=== PATIENT | female | born 1940 ===

== ENCOUNTER 2022-08-01 13:53 | Observation (INO) | payer MEDICARE, MEDICAID, SELFPAY ==
--- NOTE | ~2022-08-01 | XR_ITS ---
EXAMINATION: XR hip RT 2V w AP pelvis DATE: 08/01/2022 14:31 INDICATION: Right hip pain post fall TECHNIQUE: Anteroposterior view of the pelvis and anteroposterior and frog-leg lateral views of the r ight hip were obtained. COMPARISON: None. FINDINGS: Alignment is normal. Nondisplaced fracture at the right inferior pubic ramus. No other fractures iden tified. Bilateral hip joint spaces are normal. Mild osteoarthritis at the bilateral sacroiliac joints . Moderate lower lumbar spondylosis. Heterotopic ossification at the lateral aspect of the left and r ight iliac crest. IMPRESSION: 1. Nondisplaced fracture at the right inferior pubic ramus. Reviewed, dictated and finalized at location A.
--- NOTE | ~2022-08-01 | XR_ITS ---
EXAMINATION: XR shoulder RT min 2V DATE: 08/01/2022 14:31 INDICATION: Right shoulder pain post fall TECHNIQUE: AP internally and externally rotated, AP oblique externally rotated and transscapular Y vi ews of the right shoulder were obtained. COMPARISON: None FINDINGS: Diffuse osteopenia. Normal alignment. No fracture. Glenohumeral and acromioclavicular osteoarthritis . Soft tissues are unremarkable. Visualized portion of the right upper lung is clear. IMPRESSION: Mild right glenohumeral and acromioclavicular osteoarthritis. No acute osseous abnormality. Reviewed, dictated and finalized at location A.
--- NOTE | ~2022-08-01 | XR_ITS ---
EXAMINATION: XR elbow RT min 3V DATE: 08/01/2022 14:31 INDICATION: Right elbow pain post fall TECHNIQUE: Anteroposterior, two oblique and lateral views of the right elbow were obtained. COMPARISON: None. FINDINGS: Alignment is normal. No fracture or joint effusion. Mild osteoarthritis at the right elbow. Soft tiss ues are unremarkable. IMPRESSION: 1. Mild osteoarthritis at the right elbow. No joint effusion or acute osseous abnormality. Reviewed, dictated and finalized at location A. IMPRESSION: 1. Mild osteoarthritis at the right elbow. No joint effusion or acute osseous a bnormality.
[2022-08-01 14:00] VITALS: BP 148/73; PULSE 68; RESP 20; TEMP 36.6; O2SAT 99
--- NOTE | 2022-08-01 14:16 | ED.FALL ---
HPI - Fall General Chief Complaint: Fall Stated Complaint: fall Time Seen by Provider: 08/01/22 14:08 History of Present Illness HPI Narrative: Patient is an 82-year-old female here for evaluation after a fall today. Patient states that she was using her walker through the pumpkin patch when she rolls over a rock, sending the walker flying in front of her, landing on her right hip and elbow. She denies any head injury or loss of consciousness. Patient reports right hip and elbow pain since the accident. States that she was in her usual state of health prior to the fall, currently denies any chest pain, shortness of breath. Related Data Home Medications Medication Instructions Recorded Confirmed alprazolam 1 mg tablet (Xanax) 1 mg PO DAILY PRN 06/18/22 06/18/22 aspirin 81 mg tablet,delayed 81 mg PO DAILY 06/18/22 06/18/22 release (Adult Aspirin Regimen) metoprolol succinate 50 mg 50 mg PO DAILY 06/18/22 06/18/22 tablet,extended release 24 hr Allergies Allergy/AdvReac Type Severity Reaction Status Date / Time hydroxyprogesterone Allergy Unknown unknown Verified 06/18/22 09:11 meperidine Allergy Unknown Difficulty Verified 06/18/22 09:11 Breathing Penicillins Allergy Unknown Rash Verified 06/18/22 09:11 atorvastatin [From Lipitor] AdvReac Mild upset Verified 06/18/22 09:11 stomach codeine AdvReac Unknown upset Verified 08/01/22 14:59 stomach hydrocodone AdvReac Unknown upset Verified 08/01/22 14:59 stomach Review of Systems Review of Systems: Gen: Denies fevers or chills Eyes: Denies eye pain or visual change ENT: Denies congestion Respiratory: Denies shortness of breath or cough CV: Denies chest pain or palpitations GI: Denies abdominal pain nausea, emesis or diarrhea denies burning, urgency, frequency or hematuria Musculoskeletal: Reports right hip, shoulder and right elbow pain. Neuro: Denies numbness, tingling, weakness or focal weakness Skin: Denies rash Except as documented, all other systems reviewed and negative [facility] Past Medical History Medical History (Updated 08/01/22 @ 16:15 by Joy Lynn PA-C) Anxiety Chronic obstructive pulmonary disease Dyslipidemia Gastroesophageal reflux disease Hypertension Osteoarthritis Osteoporosis Type 2 diabetes mellitus Surgical History Surgical History (Updated 08/01/22 @ 16:15 by Joy Lynn PA-C) History of appendectomy (1949) History of hysterectomy (1973) Family History Family History Father Diabetes mellitus Family history of cardiovascular disease Mother Family history of cardiovascular disease Father Lung cancer Bone cancer Diabetes mellitus Grandparent Diabetes mellitus Grandparent Diabetes mellitus Son Carcinoma of colon Lung cancer Bone cancer Sibling Alcoholism Social History Social History (Updated 08/01/22 @ 16:12 by Joy Lynn PA-C) Social History: Surrogate medical decision maker: Code status: Full code. Smoking status: Former smoker Smoking end date: 10/10/95 Alcohol intake: never Substance use: never Exam Narrative: APPEARANCE: Well appearing, no pain in distress, well-nourished. Head: Normocephalic and atraumatic. EYES: PERRLA/EOMI, conjunctivae clear NOSE: No nasal drainage EARS: External ear normal in appearance THROAT: Oropharynx is clear. Mucous membranes are moist. NECK: Supple. No adenopathy, no masses. RESPIRATORY: Airway patent, respirations nonlabored. Clear to auscultation bilaterally, no rales, rhonchi, wheezing. CARDIOVASCULAR: Regular rate and rhythm without murmurs, rubs, or gallops. ABDOMINAL: Normoactive bowel sounds. Soft, nontender, nondistended. No rebound tenderness or guarding. MUSCULOSKELETAL: External and internal rotation provokes pain in right hip; no significant pain with flexion or extension of hip. Bony tenderness to right hip. Defer
[2022-08-01] MEDS: ACETAMINOPHEN 325 MG TABLET 650 MG PO (14:35)
[2022-08-01 15:34] LABS: Basophils Absolute Auto 0.1 K/mm3 (0.0-0.1); Basophils Percent Auto 0.8 % (0.2-1.2); Eosinophils Absolute Auto 0.2 K/mm3 (0-0.3); Eosinophils Percent Auto 2.5 % (0-4.4); Hematocrit 40.3 % (37.0-47.0); Hemoglobin 13.3 g/dL (12.0-15.0); Immature Granulocyte Absolute 0.02 K/mm3 (0.00-0.031); Immature Granulocyte Percent A 0.3 % (0-0.5); Lymphocytes Absolute Auto 1.64 K/mm3 (0.9-3.2); Lymphocytes Percent Auto 21.9 % (18.3-44.2); Mean Corpuscular Hemoglobin 30.2 pg (26-34); Mean Corpuscular Volume 91.6 fl (80-100); Mean Platelet Volume 10.5 fl (7.4-10.4); Monocytes Absolute Auto 0.8 K/mm3 (0.1-0.6); Monocytes Percent Auto 10.8 % (2.6-8.5); Neutrophils Absolute Auto 4.8 K/mm3 (1.3-6.7); Neutrophils Percent Auto 63.7 % (45.5-73.1); Platelet Count Result 230 k/mm3 (150-375); Red Cell Distribution Width 13.8 % (11.5-14.5); White Blood Count 7.5 K/mm3 (4.5-10.0)
[2022-08-01 15:45] LABS: Alanine Aminotransferase 32 U/L (6-35); Albumin Level 3.7 g/dL (3.5-5.1); Alkaline Phosphatase 50 U/L (38-126); Anion Gap 9 mmol/L (8-16); Aspartate Amino Transferase 32 U/L (14-36); Bilirubin,Total 0.4 mg/dL (0.2-1.3); Blood Urea Nitrogen 18 mg/dL (7-17); Calcium 8.8 mg/dL (8.4-10.2); Carbon Dioxide 24 mmol/L (22-30); Chloride 103 mmol/L (98-107); Estimated Glomerular Filt Rate > 60; Glucose 168 mg/dL (65-110); Sodium 136 mmol/L (137-145)
[2022-08-01] MEDS: MORPHINE SULFATE (*CRX) 4 MG/ML INJ IV PUSH (15:49)
--- NOTE | 2022-08-01 16:15 | PM.IMHP ---
H&P: HPI History of Present Illness Date/Time: 08/01/22 16:15 Chief Complaint: Right hip pain after fall. Narrative: This is an 82-year-old female with COPD, type 2 diabetes mellitus, and dyslipidemia who presented to the ED for evaluation of right hip pain after a ground level fall. The patient accompanied her daughter to a local pumpkin patch today and while attempting to go over some ros ground, the wheels in the walker got caught up and caused her to fall down onto her right side. She had immediate pain in her right hip but she was able to get up with the help of passersby. They helped her to a bench were she sat down for 20 or 30 minutes until her daughter was finished. She was unable to stand up but was unable to do so due to significant aching pain in the right groin and she was brought in for evaluation. On arrival she was also complaining of pain in her right shoulder and right elbow. She denied head trauma and loss of consciousness in the fall. Pelvic x-ray showed a nondisplaced fracture of the right inferior pubic ramus And due to inability to ambulate from the pain she is being admitted for pain control and PT/ OT evaluation. At the time my evaluation she is sitting in a wheelchair and is relatively comfortable as long as she does not attempt to set up. She is able to move the right leg at the hip and has only mild discomfort with that. Review of Systems Review of Systems: Twelve systems were reviewed. No fever, chills, or sweats. No recent cold or flu symptoms. She wears corrective lenses and is hard of hearing. No chest pain or shortness of breath. Except as documented, all other systems were reviewed and are negative. [facility] Past Medical History Medical History (Updated 08/01/22 @ 21:24 by Joy Lynn PA-C) Anxiety Chronic obstructive pulmonary disease Dyslipidemia Gastroesophageal reflux disease Hypertension Osteoarthritis Osteoporosis Type 2 diabetes mellitus Surgical History Surgical History (Updated 08/01/22 @ 16:15 by Joy Lynn PA-C) History of appendectomy (1949) History of hysterectomy (1973) Family History Family History Father Diabetes mellitus Family history of cardiovascular disease Mother Family history of cardiovascular disease Father Lung cancer Bone cancer Diabetes mellitus Grandparent Diabetes mellitus Grandparent Diabetes mellitus Son Carcinoma of colon Lung cancer Bone cancer Sibling Alcoholism Social History Social History (Updated 08/01/22 @ 21:21 by Joy Lynn PA-C) Social History: Surrogate medical decision maker: Karine Maher, daughter. Code status: Full code. Smoking packs per day: 0.2 Smoking cigarettes per day: 4.0 Years smoked: 44 Smoking pack-years: 8.80 Smoking status: Former smoker Tobacco type: cigarettes Smoking end date: 10/10/95 Alcohol intake: never Substance use: never Substance use type: does not use Living arrangements: alone Occupation/Education: retired Spiritual care concerns: No Has the Lack of Transportation Kept You From Medical Appointments or From Getting Medications?: No Within the Past 12 Months, Were You Worried Whether Your Food Would Run Out Before You Got Money to Buy More?: Never True What is Your Housing Situation Today?: I Have Housing Are You Worried That in the Next 2 Months, You May Not Have Your Own Housing to Live In?: No Do You Have Trouble Paying Your Heating Or Electricity Bill?: No Do You Have Trouble Paying For Medicines?: No Are You Currently Unemployed and Looking for Work?: No Highest Level of Education Completed: Grade School Do You Have Trouble With Childcare or the Care of a Family Member?: No Meds Home Medications and Allergies Home Medications Medication Instructions Recorded Confirmed Type albuterol sulfate 90 mcg/actuation 1 inh inhalat
[2022-08-01 18:25] VITALS: BMI 38.3
--- NOTE | 2022-08-01 18:30 | ADMGEN ---
This patient, Beckie Arce, was admitted to [facility] Room 313-01 at 1805. Patient/family oriented to hospital policies and general routines including ID bracelet, bed and alarms, visiting hours, pain management, procedures, bathroom and other care routines, personal items, smoking policy, room service/diet, and visiting hours. Information on how to activate the Rapid Response Team has been discussed. Patient/Family are encouraged to report perceived risks to care and to ask questions if they do not understand what they are told or what they should do.
[2022-08-01 21:53] VITALS: BP 150/84; PULSE 56; RESP 20; TEMP 36.3; O2SAT 98
[2022-08-02] MEDS: ACETAMINOPHEN 325 MG TABLET 650 MG PO (05:33)
[2022-08-02 06:00] VITALS: BP 123/58; PULSE 67; RESP 20; TEMP 36.6; O2SAT 98
[2022-08-02 07:34] LABS: Anion Gap 6 mmol/L (8-16); Blood Urea Nitrogen 14 mg/dL (7-17); Carbon Dioxide 26 mmol/L (22-30); Chloride 106 mmol/L (98-107); Estimated CRCL calculation 55 ml/min; Estimated Glomerular Filt Rate > 60; Glucose 160 mg/dL (65-110); Potassium 4.7 mmol/L (3.4-5.0); Sodium 138 mmol/L (137-145)
--- NOTE | 2022-08-02 08:28 | PM.CNOR ---
Assessment and Plan Assessment and plan (1) Closed fracture of right inferior pubic ramus: Qualifiers: Encounter type: initial encounter Qualified Code(s): S32.591A - Other specified fracture of right pubis, initial encounter for closed fracture <Brad Longo MD - Last Filed: 08/02/22 17:25> Code(s): S32.591A - Other specified fracture of right pubis, initial encounter for closed fracture <Brad Longo MD - Last Filed: 08/02/22 17:25> Status: Acute <Brad Longo MD - Last Filed: 08/02/22 17:25> Assessment and Plan: New patient evaluation status post injury right hip and pelvis. The history, physical exam and radiographs reviewed with the patient. Type of fracture discussed in detail. Inferior pubic ramus fracture. Treatment options including operative and non operative treatment reviewed. Risks, benefits and alternatives of each treatment discussed in detail. The patient has declined surgical treatment. Risks of treatment decision discussed in detail. Potential problems with displacement of the fracture, loss of alignment, nonunion, malunion and dysfunction discussed in detail. The patient's questions were answered. They verbalized understanding and agreement. Conservative treatment with immobilization, ice, compression and elevation. Plan evaluation by PT/OT with weight-bearing as tolerated. Pain control. Disposition when stable. <Brad Longo MD - Last Filed: 08/02/22 17:25> Assessment and Plan: Patient prefers home with home health. <ZACH Anderson - Last Filed: 08/02/22 13:13> History of Present Illness HPI Consult date: 08/02/22 <Brad Longo MD - Last Filed: 08/02/22 17:25> 08/02/22 <ZACH Anderson - Last Filed: 08/02/22 13:13> Requesting physician: Aylin Treadwell PA-C <Brad Longo MD - Last Filed: 08/02/22 17:25> Chief complaint: inferior public rami fracture <Brad Longo MD - Last Filed: 08/02/22 17:25> Narrative: 82-year-old outside yesterday with her walker on uneven ground. By report, the walker got away from lost her balance right side. Unable to bear weight. Was brought emergency room found pelvis fracture and admitted for care. <Brad Longo MD - Last Filed: 08/02/22 17:25> Review of Systems Constitutional: Constitutional: Denies fever(s) <Brad Longo MD - Last Filed: 08/02/22 17:25> Eyes: Eyes: Denies blurry vision <Brad Longo MD - Last Filed: 08/02/22 17:25> ENT: Reports Normal hearing present <Brad Longo MD - Last Filed: 08/02/22 17:25> Cardiovascular: Cardiovascular: Denies chest pain and Denies dyspnea <Brad Longo MD - Last Filed: 08/02/22 17:25> Respiratory: Respiratory: Denies dyspnea and Denies wheezing <Brad Longo MD - Last Filed: 08/02/22 17:25> Gastrointestinal: Gastrointestinal: Denies abdominal pain <Brad Longo MD - Last Filed: 08/02/22 17:25> Genitourinary: Genitourinary: Denies urinary urgency <Brad Longo MD - Last Filed: 08/02/22 17:25> Musculoskeletal: Musculoskeletal: Reports as per HPI and Denies numbness <Brad Longo MD - Last Filed: 08/02/22 17:25> Integumentary/Breasts: Skin/Breast: Denies changing lesions and Denies sores <Brad Longo MD - Last Filed: 08/02/22 17:25> Neurologic: Reports Normal hearing present, Denies behavioral changes, Denies confusion, Denies numbness and Denies convulsions <Brad Longo MD - Last Filed: 08/02/22 17:25> Psychiatric: Psychiatric: Denies behavioral changes, Denies confusion and Denies hallucinations <Brad Longo MD - Last Filed: 08/02/22 17:25> Endocrine: Endocrine: Denies heat intolerance <Brad Longo MD - Last Filed: 08/02/22 17:25> Hematologic/Lymphatic: Hematologic/Lymphatic: Denies easy bleeding <Brad Longo MD - Last Filed: 08/02/22 17:25> Allergic/Immunologic: Allergic/Immunologic: Denies wheez
[2022-08-02 09:18] LABS: Glucose Point of Care 153 mg/dl (65-105)
[2022-08-02] MEDS: METOPROLOL SUCCINATE EXT REL 50 MG TABCR PO (09:35)
[2022-08-02] MEDS: ASPIRIN 81 MG ENTERIC TABLET PO (09:35)
[2022-08-02 12:16] LABS: Glucose Point of Care 145 mg/dl (65-105)
[2022-08-02] MEDS: oxyCODONE/ACETAMINOPHEN (*CRX) 5-325 MG TABLET 1 TABLET PO (12:55)
[2022-08-02 14:00] VITALS: BP 122/59; PULSE 71; RESP 16; TEMP 35.8; O2SAT 100
[2022-08-02 16:30] LABS: Glucose Point of Care 194 mg/dl (65-105)
--- NOTE | 2022-08-02 16:59 | PM.IMPN ---
Progress Note: A&P Assessment and Plan (1) Fall from ground level: Code(s): W18.30XA - Fall on same level, unspecified, initial encounter Status: Acute Assessment and Plan: no surgical plan per ortho will need placement (2) Closed fracture of right inferior pubic ramus: Qualifiers: Encounter type: initial encounter Qualified Code(s): S32.591A - Other specified fracture of right pubis, initial encounter for closed fracture Code(s): S32.591A - Other specified fracture of right pubis, initial encounter for closed fracture Status: Acute (3) Type 2 diabetes mellitus: Code(s): E11.9 - Type 2 diabetes mellitus without complications Status: Acute (4) Hypertension: Code(s): I10 - Essential (primary) hypertension Status: Acute (5) Dyslipidemia: Code(s): E78.5 - Hyperlipidemia, unspecified Status: Acute (6) Chronic obstructive pulmonary disease: Code(s): J44.9 - Chronic obstructive pulmonary disease, unspecified Status: Acute Subjective Date/time seen: 08/02/22 16:59 no new complaints pain under decent control Exam Narrative: General: Well-developed female sitting in a wheelchair in no acute distress. Weight: 92 kilograms. BMI: 38.3. HEENT: PERRL, EOMI. Sclera anicteric. Oral mucosa moist. Neck: Supple. Respiratory: Lungs are clear to auscultation bilaterally. Cardiovascular: Regular rate and rhythm with S1-S2. Gastrointestinal: Abdomen is soft, nontender, and nondistended with positive bowel sounds. Skin: Warm and dry. Small abrasion on the right elbow. Extremities: No cyanosis Or clubbing. Trace lower extremity edema bilaterally, chronic per patient. Radial and pedal pulses intact. Musculoskeletal: She has tenderness to palpation over the right anterior shoulder with mild discomfort with active and passive range of motion. Right elbow has good range of motion without pain. She is tender to palpation in the right inguinal region. Neurological: Alert. Cranial nerves 2-12 are grossly intact. Hard of hearing. No gross focal deficits to casual conversation. Psychiatric: Pleasant and cooperative with normal mood and affect. Judgment and insight intact. Objective Data Vital Signs Vital Signs: Vital Signs - 24 hr 08/01/22 21:53 08/02/22 06:00 08/02/22 09:54 Temperature 97.3 F L 97.9 F Pulse Rate 56 L 67 Respiratory Rate 20 20 Blood Pressure 150/84 H 123/58 L Pulse Oximetry 98 98 Oxygen Delivery Room Air 08/02/22 10:20 08/02/22 14:00 Temperature 96.4 F L Pulse Rate 71 Respiratory Rate 16 Blood Pressure 122/59 L Pulse Oximetry 100 Oxygen Delivery Room Air Intake/Output Intake/Output: Intake & Output 07/30/22 07/31/22 08/01/22 08/02/22 23:59 23:59 23:59 23:59 Intake Total 525 Output Total 1000 Balance -475 Meds/Results Medications: Active Medications Generic Name Dose Route Start Last Admin Trade Name Freq PRN Reason Stop Dose Admin Acetaminophen 650 mg 08/01/22 21:28 08/02/22 05:33 Acetaminophen 325 Mg Tablet PO 650 mg Q6H PRN Administration Mild Pain (1-3) or Fever Albuterol 1 puff 08/01/22 21:28 Albuterol Sulfate (*Sp) Aerosol 1 Puff INHALATION Q4H PRN shortness of breath or wheezing Alprazolam 1 mg 08/01/22 21:28 Alprazolam (*Crx) 0.5 Mg Tablet PO DAILY PRN Anxiety Aspirin 81 mg 08/02/22 09:00 08/02/22 09:35 Aspirin 81 Mg Enteric Tablet PO 81 mg DAILY ALEXANDREA Administration Dextrose 12.5 gm 08/01/22 21:26 Dextrose 50% 25 Gm/50 Ml Syringe IV PUSH PRN PRN Hypoglycemia Protocol Ezetimibe 10 mg 08/01/22 21:35 08/01/22 23:31 Ezetimibe 10 Mg Tablet PO Not Given HS ALEXANDREA Glucagon 1 mg 08/01/22 21:26 Glucagon For Inj 1 Mg Vial IM PRN PRN Hypoglycemia Protocol Glucose 15 gm 08/01/22 21:26 Glucose Oral Gel 15 Gm Of Glucse In 37.5 Gm Tube PO PRN P
[2022-08-02] MEDS: EZETIMIBE 10 MG TABLET PO (20:30)
[2022-08-02 22:00] VITALS: BP 118/69; PULSE 73; RESP 17; TEMP 36.3; O2SAT 95
[2022-08-02] MEDS: traMADol HCL (*CRX) 50 MG TABLET PO (22:46)
[2022-08-03 06:00] VITALS: BP 115/66; PULSE 74; RESP 16; TEMP 36.6; O2SAT 96
--- NOTE | 2022-08-03 07:57 | PM.PNORT ---
Progress Note: A&P Assessment and Plan (1) Closed fracture of right inferior pubic ramus: Qualifiers: Encounter type: subsequent encounter Fracture healing: with routine healing Qualified Code(s): S32.591D - Other specified fracture of right pubis, subsequent encounter for fracture with routine healing Code(s): S32.591A - Other specified fracture of right pubis, initial encounter for closed fracture Status: Acute Assessment and Plan: Right pelvis fracture. Pain controlled. Home with home health when stable. Plan Patient prefers home with home health. Subjective Subjective Date/Time Seen: 08/03/22 07:57 Principal diagnosis: Right inferior pubic ramus fracture Interval history: no changes or new complaints. Patient alert and oriented. Exam Const: General: No confusion Orientation/consciousness: patient oriented x3 and No confusion HENMT: Head: normal to inspection, normocephalic and atraumatic Eyes: Conjunctivae: conjunctivae normal Sclera: sclerae normal Neck: Neck: supple and nontender Chest: Chest palpation & inspection: normal inspection of the chest Resp: Effort & Inspection: normal respiratory effort and no audible wheezes Neuro: General: patient oriented x3 and No confusion Cranial nerves: Yes Normal hearing present Extrem: General: capillary refill normal Right upper extremity: normal to inspection Left upper extremity: normal to inspection Right lower extremity: hip/thigh Details: tenderness Location: of the hip (groin ) Location: laterally and anteriorly and swelling Location: at the hip ( mild), ankle ( able to actively flex and extend ankle) Details: no tenderness and foot Details: normal capillary refill, toes with normal ROM, vascular exam Details: dorsalis pedis pulse present and normal capillary refill and motor-sensory exam Details: light-touch normal Location: in all toes; no tenderness Left lower extremity: normal to inspection, hip/thigh Details: no tenderness and no swelling, lower leg, ankle (no calf tenderness) Details: normal ROM; no tenderness and foot Details: normal capillary refill, vascular exam Details: dorsalis pedis pulse present and normal capillary refill and motor-sensory exam light-touch normal in all toes Psych: Affect: normal affect Objective Data Vital Signs Vital Signs: Vital Signs - 24 hr 08/02/22 09:54 08/02/22 10:20 08/02/22 14:00 Temperature 96.4 F L Pulse Rate 71 Respiratory Rate 16 Blood Pressure 122/59 L Pulse Oximetry 100 Oxygen Delivery Room Air Room Air 08/02/22 22:00 08/03/22 06:00 Temperature 97.3 F L 97.8 F Pulse Rate 73 74 Respiratory Rate 17 16 Blood Pressure 118/69 115/66 Pulse Oximetry 95 96 Oxygen Delivery Intake/Output Intake/Output: Intake & Output 07/31/22 08/01/22 08/02/22 08/03/22 23:59 23:59 23:59 23:59 Intake Total 885 1100 Output Total 1600 550 Balance -715 550 Meds/Results Medications: Active Medications Generic Name Dose Route Start Last Admin Trade Name Freq PRN Reason Stop Dose Admin Acetaminophen 650 mg 08/01/22 21:28 08/02/22 05:33 Acetaminophen 325 Mg Tablet PO 650 mg Q6H PRN Administration Mild Pain (1-3) or Fever Albuterol 1 puff 08/01/22 21:28 Albuterol Sulfate (*Sp) Aerosol 1 Puff INHALATION Q4H PRN shortness of breath or wheezing Alprazolam 1 mg 08/01/22 21:28 Alprazolam (*Crx) 0.5 Mg Tablet PO DAILY PRN Anxiety Aspirin 81 mg 08/02/22 09:00 08/02/22 09:35 Aspirin 81 Mg Enteric Tablet PO 81 mg DAILY ALEXANDREA Administration Dextrose 12.5 gm 08/01/22 21:26 Dextrose 50% 25 Gm/50 Ml Syringe IV PUSH PRN PRN Hypoglycemia Protocol Ezetimibe 10 mg 08/01/22 21:35 08/02/22 20:30 Ezetimibe 10 Mg Tablet PO 10 mg HS ALEXANDREA Administration Glucagon 1 mg 08/01/22 21:26 Glucagon For Inj 1 Mg Vial IM PRN PRN Hypoglycemia Protocol Glucose 15 gm
[2022-08-03 08:08] LABS: Glucose Point of Care 149 mg/dl (65-105)
[2022-08-03 08:32] VITALS: PULSE 74
[2022-08-03] MEDS: ASPIRIN 81 MG ENTERIC TABLET PO (08:32)
[2022-08-03] MEDS: METOPROLOL SUCCINATE EXT REL 50 MG TABCR PO (08:32)
[2022-08-03] MEDS: traMADol HCL (*CRX) 50 MG TABLET PO (08:36)
--- NOTE | 2022-08-03 11:00 | PM.DS ---
DS: Admitting Diagnosis Discharge Date August 03, 2022 Admitting Diagnosis fall DS: Discharge Diagnosis Discharge Diagnosis (1) Fall from ground level: Code(s): W18.30XA - Fall on same level, unspecified, initial encounter Status: Acute Assessment and Plan: no surgical plan per ortho will need placement (2) Closed fracture of right inferior pubic ramus: Qualifiers: Encounter type: subsequent encounter Fracture healing: with routine healing Qualified Code(s): S32.591D - Other specified fracture of right pubis, subsequent encounter for fracture with routine healing Code(s): S32.591A - Other specified fracture of right pubis, initial encounter for closed fracture Status: Acute (3) Type 2 diabetes mellitus: Code(s): E11.9 - Type 2 diabetes mellitus without complications Status: Acute (4) Hypertension: Code(s): I10 - Essential (primary) hypertension Status: Acute (5) Dyslipidemia: Code(s): E78.5 - Hyperlipidemia, unspecified Status: Acute (6) Chronic obstructive pulmonary disease: Code(s): J44.9 - Chronic obstructive pulmonary disease, unspecified Status: Acute DS: Summary Hospital Course Hospital Course: patient is an 82-year-old female who had a fall and had a pelvic fracture. Orthopedics was consulted and recommended no surgery after discussion with patient. She will be sent home with home health and pain control. Otherwise she is stable Time Spent with Patient Time attestation: Total time spent providing and/or coordinating discharge services: Exam Narrative: General: Well-developed female sitting in a wheelchair in no acute distress. Weight: 92 kilograms. BMI: 38.3. HEENT: PERRL, EOMI. Sclera anicteric. Oral mucosa moist. Neck: Supple. Respiratory: Lungs are clear to auscultation bilaterally. Cardiovascular: Regular rate and rhythm with S1-S2. Gastrointestinal: Abdomen is soft, nontender, and nondistended with positive bowel sounds. Skin: Warm and dry. Small abrasion on the right elbow. Extremities: No cyanosis Or clubbing. Trace lower extremity edema bilaterally, chronic per patient. Radial and pedal pulses intact. Musculoskeletal: She has tenderness to palpation over the right anterior shoulder with mild discomfort with active and passive range of motion. Right elbow has good range of motion without pain. She is tender to palpation in the right inguinal region. Neurological: Alert. Cranial nerves 2-12 are grossly intact. Hard of hearing. No gross focal deficits to casual conversation. Psychiatric: Pleasant and cooperative with normal mood and affect. Judgment and insight intact. DS: Data Data Completed and Pending Labs on day of discharge: Labs from last 24 hours 08/03/22 08/02/22 08/02/22 07:58 16:23 12:00 POC Capillary Glucose 149 H 194 H 145 H Discharge Plan Discharge Attending physician on discharge: Mendoza Davis Consulting providers: Brad Longo ; Aylin Treadwell Discharging Clinician: Mendoza Davis Patient Disposition: Home Health Service Activity: may shower, no driving and follow weight bearing status Diet: as tolerated Wound Care Instructions: follow printed instructions Discharge Instructions: Per Care Coordination, patient to discharge home with [facility] ([phone]) for PT/OT and fci service. They will contact you after discharge to arrange admission visit. Patient Instructions: Antibiotic Form, Aspirin (By mouth), Pelvic Fracture (DC) Stand Alone Forms: General Discharge Information Follow-up/Referrals: Brad Longo MD [Physician] - 09/15/22 9:00 am Discharge Medications: New tramadol 50 mg tablet 50 mg PO Q6H PRN (Reason: pain) 5 Days Qty: 20 0RF Continued aspirin [Adult Aspirin Regimen] 81 mg tablet,delayed release (DR/EC) 81 mg PO DAILY metoprolol succinate 50 mg t
[2022-08-03 11:45] LABS: Glucose Point of Care 164 mg/dl (65-105)
[2022-08-03 11:47] VITALS: O2SAT 94
== END 2022-08-03 14:31 | disposition home health service (06) ==
LOC: ANHED 16:08 → ANH3MEDSUR 18:10
PROVIDERS: Internal Medicine; Physician Assistant; Admitting Provider Chiropractor; Emergency Provider Emergency Medicine; PCP Family Medicine; Visit Provider Chiropractor
DX: S32.591A Other specified fracture of right pubis, initial encounter for closed fracture (principal); W18.30XA Fall on same level, unspecified, initial encounter; M19.021 Primary osteoarthritis, right elbow; M19.011 Primary osteoarthritis, right shoulder; Y92.89 Other specified places as the place of occurrence of the external cause; F41.9 Anxiety disorder, unspecified; J44.9 Chronic obstructive pulmonary disease, unspecified; E78.5 Hyperlipidemia, unspecified; K21.9 Gastro-esophageal reflux disease without esophagitis; I10 Essential (primary) hypertension; M19.90 Unspecified osteoarthritis, unspecified site; M81.0 Age-related osteoporosis without current pathological fracture; E11.9 Type 2 diabetes mellitus without complications; Z23 Encounter for immunization; Z83.3 Family history of diabetes mellitus; Z87.891 Personal history of nicotine dependence; Z79.51 Long term (current) use of inhaled steroids; Z79.82 Long term (current) use of aspirin; Z79.899 Other long term (current) drug therapy; Z82.49 Family history of ischemic heart disease and other diseases of the circulatory system
CPT/HCPCS: 36415; 73030; 73080; 73502; 80048; 80053; 82948; 83735; 85025; 90471; 90694; 96374; 97110; 97161; 97165; 97530; 97535; 99285; A9270; G0008; G0378; J2270

== ENCOUNTER 2022-08-04 12:41 | Outpatient (NON) | payer MEDICARE, MEDICAID, SELFPAY ==
[2022-08-04 13:20] LABS: Add Urine Microscopic? YES; Appearance Urine Clear (Clear); Bacteria Urine Trace /hpf; Bilirubin Urine Negative (Negative); Blood Urine Negative (Negative); Color Urine Straw (Yellow); Glucose Urine UA 3+ mg/dL (Negative); Ketones Urine Negative (Negative); Leukocyte Esterase Ur 2+ LEU/UL (Negative); Nitrate Urine Negative (Negative); Protein Urine Negative (Negative); Specific Grav Ur 1.007 (1.001-1.035); Squamous Epithelial Cell Urine Rare /hpf (Few); Urobilinogen Urine Negative mg/dL (<2.0); WBC Urine 51-75 /hpf
== END 2022-08-04 12:42 | disposition home or self-care (01) ==
LOC: ANHLAB 12:45 → HOME HLTH 12:46
PROVIDERS: PCP Family Medicine; Referring Provider Family Medicine; Visit Provider Physician Assistant
DX: R30.0 Dysuria (principal); S32.591D Other specified fracture of right pubis, subsequent encounter for fracture with routine healing; I30.0 Acute nonspecific idiopathic pericarditis; E11.9 Type 2 diabetes mellitus without complications; I10 Essential (primary) hypertension; J44.9 Chronic obstructive pulmonary disease, unspecified
CPT/HCPCS: 81001; 87086; 87088

== ENCOUNTER 2023-02-24 10:07 | Outpatient (CLI) | payer MEDICARE, MEDICAID, SELFPAY ==
--- NOTE | ~2023-02-24 | MM_ITS ---
EXAMINATION: MM screening katja BI w melany HISTORY: Screening mammogram TECHNIQUE: Craniocaudal and mediolateral oblique 3-D tomosynthesis images were obtained and synthetic 2-D images were generated. CAD analysis was submitted and interpreted. COMPARISON: No prior mammogram is available for comparison at this institution. BREAST PARENCHYMAL COMPOSITION: There are scattered areas of fibroglandular density. FINDINGS: RIGHT BREAST: No suspicious mass, calcification, or architectural distortion are identified to sugges t malignancy. LEFT BREAST: There are small masses in the middle and posterior thirds of the outer breast. IMPRESSION: 1. Small left breast masses which may represent the patient's baseline however no comparison is curre ntly available. 2. Comparison with prior mammograms is necessary. BI-RADS Category 0: Incomplete: Needs comparison with prior mammograms. Reviewed, dictated and finalized at location A. IMPRESSION: 1. Small left breast masses which may represent the patient's baseline however no comparison is currently available. 2. Comparison with prior mammograms is necessary. BI-RADS Category 0: Incomplete: Needs comparison with prior mammograms.
== END 2023-02-24 10:08 | disposition home or self-care (01) ==
PROVIDERS: PCP Family Medicine; Visit Provider Family Medicine
DX: Z12.31 Encounter for screening mammogram for malignant neoplasm of breast (principal); R92.8 Other abnormal and inconclusive findings on diagnostic imaging of breast
CPT/HCPCS: 77063; 77067

== ENCOUNTER 2023-03-22 11:09 | Outpatient (CLI) | payer MEDICARE, MEDICAID, SELFPAY ==
--- NOTE | ~2023-03-22 | MMUS_ITS ---
EXAMINATION: MM diagnostic katja LT w melany, US breast LT limited HISTORY: Small masses reported in the middle and posterior thirds of the outer left breast on 02/25/20 TECHNIQUE: Additional 3-D tomosynthesis images of the left breast were performed and synthetic 2-D im ages were generated. CAD analysis was submitted and interpreted. High resolution breast ultrasound wa s performed. COMPARISON: 02/24/2023 bilateral screening mammogram 07/28/2020, 10/22/2021 bilateral screening mammogram examinations FINDINGS: MAMMOGRAPHIC FINDINGS: Approximately 4 x 5 mm circumscribed opacity with a small peripheral calcification is noted in the lo wer outer left breast approximately 8.5 cm deep to the nipple, having the appearance of a small proba ble benign fibroadenoma with minimal superficial calcification. There is another approximately 3.2 x 5 mm circumscribed mass with some superficial calcifications in the lower outer quadrant approximately 6.5 cm deep to the nipple, likely another small probable benig n fibroadenoma. No suspicious mass or architectural distortion or malignant calcification or skin thickening or retra ction is evident ULTRASOUND: No suspicious mass or shadowing is detected in the lower outer quadrant of the left breast. IMPRESSION: 1. Benign findings 2. Routine mammographic screening is recommended BI-RADS Category 2: Benign finding(s). Reviewed, dictated and finalized at location A. IMPRESSION: 1. Benign findings 2. Routine mammographic screening is recommended BI-RADS Category 2: Benign finding(s).
== END 2023-03-22 11:10 | disposition home or self-care (01) ==
PROVIDERS: PCP Family Medicine; Visit Provider Physician Assistant
DX: R92.8 Other abnormal and inconclusive findings on diagnostic imaging of breast (principal)
CPT/HCPCS: 76642; 77061; 77065; G0279

== ENCOUNTER 2023-11-23 10:59 | Emergency (ER) | payer MEDICARE, MEDICAID, SELFPAY ==
[2023-11-23] VITALS (9 sets, daily range): BP systolic 126–143; BP diastolic 78–93; PULSE 78–90; RESP 14–23; TEMP 37.4; O2SAT 90–96
--- NOTE | ~2023-11-23 | XR_ITS ---
XR lumbar spine 2-3V DATE: 11/23/2023 12:26 INDICATION: Fall today. Low back pain. TECHNIQUE: AP, lateral, coned lateral lumbosacral views COMPARISON: None FINDINGS: There is diffuse osteopenia. Normal alignment of the lumbar spine. No fracture or bone destruction. Included lower thoracic and kana mbar pedicles are intact. There is mild degenerative spurring of the lumbar vertebrae and mild loss of interspace height at L1- 2, L4-5 and L5-S1. No spondylolisthesis. The sacroiliac joints are intact. There is extensive calcification of the abdominal aorta, without apparent aneurysm. IMPRESSION: Osteopenia No lumbar spine fracture Multilevel mild to moderate degenerative disc disease Reviewed, dictated and finalized at location B. SCUDDER
[2023-11-23] MEDS: traMADol HCL (*CRX) 50 MG TABLET PO (12:01)
--- NOTE | 2023-11-23 13:29 | ED.GENADULT ---
HPI - General Adult General Chief complaint: Fall Stated complaint: glf, n/v Time Seen by Provider: 11/23/23 11:08 History of Present Illness HPI narrative: patient is an 83-year-old female who presents ER with right-sided low back pain. Patient fell onto her buttock today. No numbness or tingling to lower extremities. She is able to ambulate. Worse with twisting. Denies alleviating factors. Concerned she may have a fracture. Related Data Home Medications Medication Instructions Recorded Confirmed alprazolam 1 mg tablet (Xanax) 1 mg PO DAILY PRN Anxiety 06/18/22 09/13/23 aspirin 81 mg tablet,delayed 81 mg PO DAILY 06/18/22 09/13/23 release (Adult Aspirin Regimen) metoprolol succinate 50 mg 50 mg PO DAILY 06/18/22 09/13/23 tablet,extended release 24 hr Allergies Allergy/AdvReac Type Severity Reaction Status Date / Time hydroxyprogesterone Allergy Unknown unknown Verified 09/13/23 09:54 meperidine Allergy Unknown Difficulty Verified 09/13/23 09:54 Breathing Penicillins Allergy Unknown Rash Verified 09/13/23 09:54 atorvastatin [From Lipitor] AdvReac Mild upset Verified 09/13/23 09:54 stomach codeine AdvReac Unknown upset Verified 09/13/23 09:54 stomach hydrocodone AdvReac Unknown upset Verified 09/13/23 09:54 stomach Review of Systems Constitutional: Constitutional: Reports no additional constitutional complaints Cardiovascular: Cardiovascular: Reports no additional cardiovascular complaints Respiratory: Respiratory: Reports no additional respiratory complaints Gastrointestinal: Gastrointestinal: Denies abdominal pain, Denies diarrhea, Reports nausea and Reports vomiting Musculoskeletal: Musculoskeletal: Reports back pain, Denies arthralgias and Denies joint swelling Neurologic: Denies focal weakness and Denies numbness [facility] Past Medical History Medical History Anxiety Chronic obstructive pulmonary disease Closed fracture of right inferior pubic ramus Dyslipidemia Fall from ground level Gastroesophageal reflux disease Hypertension Osteoarthritis Osteoporosis Type 2 diabetes mellitus Surgical History Surgical History History of appendectomy (194) History of hysterectomy (1973) Family History Family History Father Diabetes mellitus Family history of cardiovascular disease Mother Family history of cardiovascular disease Father Lung cancer Bone cancer Diabetes mellitus Grandparent Diabetes mellitus Grandparent Diabetes mellitus Son Carcinoma of colon Lung cancer Bone cancer Sibling Alcoholism Social History Social History Social History: Surrogate medical decision maker: Karine Maher, daughter. Code status: Full code. Smoking packs per day: 0.2 Smoking cigarettes per day: 4.0 Years smoked: 44 Smoking pack-years: 8.80 Smoking status: Former smoker Tobacco type: cigarettes Smoking end date: 10/10/95 Alcohol intake: never Substance use: never Substance use type: does not use Lack of Transportation: No Lack of Food: Never True Current Housing: I Have Housing Concerned About Future Housing: No Difficulty Paying Gas/Electric Bills: No Difficulty Paying for Meds: No Currently Unemployed: No Education: Grade School Difficulty w/ Childcare or Family Care: No Living arrangements: alone Occupation/Education: retired Spiritual care concerns: No Exam Narrative: GENERAL: Well-appearing, well-nourished, and in no acute distress. HEAD: Normocephalic, atraumatic. ENT:Mucous membranes moist. CHEST: Clear to auscultation. No respiratory distress. HEART: Regular rate and rhythm. Normal peripheral pulses. BACK: No midline S of
== END 2023-11-23 13:50 | disposition home or self-care (01) ==
PROVIDERS: Emergency Provider Emergency Medicine; PCP Family Medicine
DX: S39.012A Strain of muscle, fascia and tendon of lower back, initial encounter (principal); R41.9 Unspecified symptoms and signs involving cognitive functions and awareness; J44.9 Chronic obstructive pulmonary disease, unspecified; K21.9 Gastro-esophageal reflux disease without esophagitis; I10 Essential (primary) hypertension; M19.90 Unspecified osteoarthritis, unspecified site; E11.9 Type 2 diabetes mellitus without complications; W19.XXXA Unspecified fall, initial encounter
CPT/HCPCS: 72100; 99283; A9270

== ENCOUNTER 2024-05-29 09:20 | Outpatient (CLI) | payer MEDICARE, MEDICAID, SELFPAY ==
--- NOTE | ~2024-05-29 | MM_ITS ---
EXAMINATION: MM screening katja BI w melany HISTORY: Screening TECHNIQUE: Craniocaudal and mediolateral oblique 3-D tomosynthesis images were obtained and synthetic 2-D images were generated. CAD analysis was submitted and interpreted. COMPARISON: Comparison to multiple prior studies sequentially, with oldest reviewed study dated 06/2020. BREAST PARENCHYMAL COMPOSITION: Not dense: There are scattered areas of fibroglandular density. FINDINGS: There is no evidence of suspicious mass, calcification, or architectural distortion to sugg est malignancy in either breast. There has been no suspicious interval change. IMPRESSION: 1. No mammographic evidence of malignancy. 2. Recommend routine screening mammography in one year. BI-RADS Category 1: Negative Reviewed, dictated and finalized at location B.
== END 2024-05-29 09:21 | disposition home or self-care (01) ==
LOC: ANHIMG 09:21
PROVIDERS: PCP Family Medicine; Visit Provider Physician Assistant Medical
DX: Z12.31 Encounter for screening mammogram for malignant neoplasm of breast (principal)
CPT/HCPCS: 77063; 77067

== ENCOUNTER 2024-06-25 17:16 | Emergency (ER) | payer MEDICARE, MEDICAID, SELFPAY ==
--- NOTE | ~2024-06-25 | US_ITS ---
EXAMINATION: US venous doppler [facility] DATE: 06/25/2024 22:11 INDICATION: PAIN SWELLING . TECHNIQUE: Grayscale images without and with compression and Doppler images of the left lower extremi ty veins were obtained. COMPARISON: None FINDINGS: The left common femoral vein, profunda (deep) femoral vein, femoral vein, popliteal vein, posterior tibial veins, and greater saphenous vein are patent. The left peroneal veins were not well visualized . IMPRESSION: Left peroneal veins not well visualized. No DVT detected in the visualized veins. Reviewed, dictated and finalized at location K. IMPRESSION: Left peroneal veins not well visualized. No DVT detected in the visualized vein s.
--- NOTE | ~2024-06-25 | XR_ITS ---
EXAM: XR hip LT 2V w AP pelvis DATE: 06/25/2024 21:50 HISTORY: left hip pain, no injury . COMPARISON: 08/01/2022. FINDINGS: Decreased mineralization. Old right inferior pubic ramus fracture. No new acute fracture o r dislocation. Stable heterotopic ossification at the bilateral iliac crests. Lower lumbar degenerati ve disc disease. Mild bilateral hip and SI joint osteoarthritis. No erosion or periosteal change. Sof t tissues within normal limits. IMPRESSION: No acute osseous finding in the pelvis or left hip. Reviewed, dictated and finalized at location K.
--- NOTE | ~2024-06-25 | XR_ITS ---
EXAM: XR ankle LT min 3V DATE: 06/25/2024 21:50 HISTORY: pain left ankle, no injury . COMPARISON: None available. FINDINGS: Osteopenia. Cerclage wire in the proximal first metatarsal. No fracture or dislocation. No lytic or blastic lesion. Moderate degenerative change at the tibiotalar joint and multiple midfoot j oints. Plantar enthesopathy. No erosion or periosteal change. Soft tissues within normal limits. IMPRESSION: No acute osseous finding the left ankle. Reviewed, dictated and finalized at location K.
--- NOTE | ~2024-06-25 | XR_ITS ---
EXAM: XR knee LT 3V DATE: 06/25/2024 21:50 HISTORY: left knee pain, no injury . COMPARISON: None available. FINDINGS: Osteopenia. No fracture or dislocation. No lytic or blastic lesion. Tricompartmental osteo arthritis, moderate in the medial compartment. Small volume joint effusion. No erosion or periosteal change. Soft tissues within normal limits. IMPRESSION: No acute osseous finding in the left knee. Reviewed, dictated and finalized at location K.
[2024-06-25 17:18] VITALS: BP 146/76; PULSE 74; RESP 18; TEMP 36.4; O2SAT 98
[2024-06-25 21:15] VITALS: BP 183/74; PULSE 68; RESP 18; O2SAT 100
[2024-06-25 21:49] VITALS: BP 164/81; PULSE 69; RESP 18; O2SAT 100
[2024-06-25] MEDS: MORPHINE SULFATE (*CRX) 4 MG/ML INJ 2 MG IV PUSH (21:56)
[2024-06-25 21:58] LABS: Basophils Absolute Auto 0.1 K/mm3 (0.0-0.1); Basophils Percent Auto 0.7 % (0.2-1.2); Eosinophils Absolute Auto 0.2 K/mm3 (0-0.3); Eosinophils Percent Auto 3.3 % (0-4.4); Hematocrit 40.8 % (37.0-47.0); Hemoglobin 13.6 g/dL (12.0-15.0); Immature Granulocyte Absolute 0.01 K/mm3 (0.00-0.031); Immature Granulocyte Percent A 0.1 % (0-0.5); Lymphocytes Absolute Auto 2.45 K/mm3 (0.9-3.2); Lymphocytes Percent Auto 36.2 % (18.3-44.2); Mean Corpuscular HGB Conc 33.3 g/dl (32-36); Mean Corpuscular Hemoglobin 30.5 pg (26-34); Mean Corpuscular Volume 91.5 fl (80-100); Mean Platelet Volume 9.9 fl (7.4-10.4); Monocytes Absolute Auto 0.8 K/mm3 (0.1-0.6); Monocytes Percent Auto 12.3 % (2.6-8.5); Neutrophils Absolute Auto 3.2 K/mm3 (1.3-6.7); Neutrophils Percent Auto 47.4 % (45.5-73.1); Platelet Count Result 215 k/mm3 (150-375); Red Blood Count 4.46 M/mm3 (4.2-5.4); Red Cell Distribution Width 13.6 % (11.5-14.5); White Blood Count 6.8 K/mm3 (4.5-10.0)
[2024-06-25 22:11] LABS: Chloride 98 mmol/L (98-107)
[2024-06-25 22:14] LABS: Sodium 128 mmol/L (137-145)
[2024-06-25 22:22] LABS: Alanine Aminotransferase 24 U/L (6-35); Alkaline Phosphatase 56 U/L (38-126); Anion Gap 5 mmol/L (4-12); Aspartate Amino Transferase 30 U/L (14-36); Bilirubin,Total 0.5 mg/dL (0.2-1.3); Blood Urea Nitrogen 16 mg/dL (7-17); CRP < 0.5 mg/dL (<1.0); Calcium 8.9 mg/dL (8.4-10.2); Carbon Dioxide 25 mmol/L (22-30); Estimated CRCL calculation 45 ml/min; Estimated Glomerular Filt Rate > 60; Glucose 172 mg/dL (65-110); Potassium 4.2 mmol/L (3.4-5.0)
[2024-06-25 22:46] LABS: Erythrocyte Sedimentation Rate 18 mm/hr (0-20)
--- NOTE | 2024-06-25 23:00 | ED.GENADULT ---
HPI - General Adult General Chief complaint: Extremity Injury, Lower Stated complaint: L leg pain Time Seen by Provider: 06/25/24 21:17 History of Present Illness HPI narrative: Patient is a 84-year-old female who presents emergency department with chief complaint of left knee pain. The patient reports she was like sitting in a chair got up and felt pain in her left knee patient reports she had no specific trauma denies falling on it denies shortness of breath denies chest pain reports that she normally uses a walker to ambulate. Related Data Home Medications Medication Instructions Recorded Confirmed alprazolam 1 mg tablet (Xanax) 1 mg PO DAILY PRN Anxiety 06/18/22 12/01/23 aspirin 81 mg tablet,delayed 81 mg PO DAILY 06/18/22 12/01/23 release (Adult Aspirin Regimen) metoprolol succinate 50 mg 50 mg PO DAILY 06/18/22 12/01/23 tablet,extended release 24 hr Allergies Allergy/AdvReac Type Severity Reaction Status Date / Time hydroxyprogesterone Allergy Unknown unknown Verified 12/01/23 10:52 meperidine Allergy Unknown Difficulty Verified 12/01/23 10:52 Breathing Penicillins Allergy Unknown Rash Verified 12/01/23 10:52 atorvastatin [From Lipitor] AdvReac Mild upset Verified 12/01/23 10:52 stomach codeine AdvReac Unknown upset Verified 12/01/23 10:52 stomach hydrocodone AdvReac Unknown upset Verified 12/01/23 10:52 stomach Review of Systems Review of Systems: A 10 system review of systems was completed on the patient and is negative except for what is stated in the HPI. Nursing and ancillary documentation was reviewed. [facility] Past Medical History Medical History Anxiety Chronic obstructive pulmonary disease Closed fracture of right inferior pubic ramus Dyslipidemia Fall from ground level Gastroesophageal reflux disease Hypertension Osteoarthritis Osteoporosis Type 2 diabetes mellitus Surgical History Surgical History History of appendectomy (1949) History of hysterectomy (1973) Family History Family History Father Diabetes mellitus Family history of cardiovascular disease Mother Family history of cardiovascular disease Father Lung cancer Bone cancer Diabetes mellitus Grandparent Diabetes mellitus Grandparent Diabetes mellitus Son Carcinoma of colon Lung cancer Bone cancer Sibling Alcoholism Social History Social History Social History: Surrogate medical decision maker: Karine Maher, daughter. Code status: Full code. Smoking packs per day: 0.2 Smoking cigarettes per day: 4.0 Years smoked: 44 Smoking pack-years: 8.80 Smoking status: Former smoker Tobacco type: cigarettes Smoking end date: 10/10/95 Alcohol intake: never Substance use: never Substance use type: does not use Lack of Transportation: No Lack of Food: Never True Current Housing: I Have Housing Concerned About Future Housing: No Difficulty Paying Gas/Electric Bills: No Difficulty Paying for Meds: No Currently Unemployed: No Education: Grade School Difficulty w/ Childcare or Family Care: No Living arrangements: alone Occupation/Education: retired Spiritual care concerns: No Exam Narrative: GENERAL: Well-appearing, well-nourished, and in no acute distress. HEAD: Normocephalic, atraumatic. EYES: PERRLA and EOMI. ENT: Nares clear, no rhinorrhea or epistaxis. Mucous membranes moist. NECK: Supple. CHEST: Clear to auscultation. No respiratory distress. HEART: Regular rate and rhythm. No murmur heard. Normal peripheral pulses. ABDOMEN: Soft, nontender, nondistended, normal active bowel sounds. EXTREMITIES: Normal range of motion slight swelling in the left knee. Tendernes
[2024-06-25 23:16] VITALS: BP 134/7; PULSE 94; RESP 18; O2SAT 98
== END 2024-06-25 23:18 | disposition home or self-care (01) ==
PROVIDERS: Emergency Provider Emergency Medicine; PCP Physician Assistant Medical
DX: M25.562 Pain in left knee (principal); I10 Essential (primary) hypertension; J44.9 Chronic obstructive pulmonary disease, unspecified; E78.5 Hyperlipidemia, unspecified; E11.9 Type 2 diabetes mellitus without complications; K21.9 Gastro-esophageal reflux disease without esophagitis; M19.90 Unspecified osteoarthritis, unspecified site; M81.0 Age-related osteoporosis without current pathological fracture; Z90.710 Acquired absence of both cervix and uterus; Z87.891 Personal history of nicotine dependence; Z79.899 Other long term (current) drug therapy; Z79.82 Long term (current) use of aspirin; Z79.84 Long term (current) use of oral hypoglycemic drugs; M79.605 Pain in left leg
CPT/HCPCS: 36415; 73502; 73562; 73610; 80053; 85025; 85652; 86140; 93971; 96374; 99284; J2270

== ENCOUNTER 2025-07-29 09:02 | Outpatient (CLI) | payer MEDICARE, MEDICAID, SELFPAY ==
--- NOTE | ~2025-07-29 | MM_ITS ---
EXAMINATION: MM screening katja BI w melany HISTORY: Screening TECHNIQUE: Craniocaudal and mediolateral oblique 3-D tomosynthesis images were obtained and synthetic 2-D images were generated. CAD analysis was submitted and interpreted. COMPARISON: Comparison to multiple prior studies sequentially, with oldest reviewed study dated 07/18/2020. BREAST PARENCHYMAL COMPOSITION: Not Dense: The breasts are almost entirely fatty. FINDINGS: There is no evidence of suspicious mass, calcification, or architectural distortion to suggest malignancy in either breast. There has been no suspicious interval change. IMPRESSION: 1. No mammographic evidence of malignancy. 2. Recommend routine screening mammography in one year. BI-RADS Category 1: Negative Reviewed, dictated and finalized at location O.
== END 2025-07-29 09:03 | disposition home or self-care (01) ==
LOC: ANHFOHIMG 09:05
PROVIDERS: PCP Family Medicine; Visit Provider Student in an Organized Health Care Education/Training Program
DX: Z12.31 Encounter for screening mammogram for malignant neoplasm of breast (principal)
CPT/HCPCS: 77063; 77067

== ENCOUNTER 2025-07-29 09:55 | Outpatient (CLI) | payer MEDICARE, MEDICAID, SELFPAY ==
[2025-07-29 10:49] LABS: Hematocrit 41.2 % (37.0-47.0); Hemoglobin 13.3 g/dL (12.0-15.0); Immature Granulocyte Percent A 0.3 % (0-0.5); Lymphocytes Absolute Auto 1.45 K/mm3 (0.9-3.2); Mean Corpuscular HGB Conc 32.3 g/dl (32-36); Mean Corpuscular Hemoglobin 29.4 pg (26-34); Mean Corpuscular Volume 90.9 fl (80-100); Nucleated Red Blood Cells Absolute Auto 0.000 K/mm3 (0.0-0.012); Nucleated Red Blood Cells Perc 0.0 % (0.0-0.2); Platelet Count Result 251 k/mm3 (150-375); Red Blood Count 4.53 M/mm3 (4.2-5.4); White Blood Count 6.5 K/mm3 (4.5-10.0)
[2025-07-29 11:00] LABS: Hemoglobin A1C 7.1 % (<5.7)
[2025-07-29 11:10] LABS: Alanine Aminotransferase 26 U/L (6-35); Albumin Level 3.9 g/dL (3.5-5.1); Alkaline Phosphatase 68 U/L (38-126); Anion Gap 6 mmol/L (4-12); Aspartate Amino Transferase 31 U/L (14-36); Bilirubin,Total 0.6 mg/dL (0.2-1.3); Blood Urea Nitrogen 12 mg/dL (7-17); Calcium 9.1 mg/dL (8.4-10.2); Carbon Dioxide 24 mmol/L (22-30); Chloride 106 mmol/L (98-107); Cholesterol 213 mg/dL (0-200); Estimated Glomerular Filt Rate > 60; Glucose 175 mg/dL (65-110); HDL Direct 66 mg/dL; Potassium 4.4 mmol/L (3.4-5.0); Sodium 136 mmol/L (137-145); Total Protein 6.6 g/dL (6.3-8.2); Triglycerides 75 mg/dL (<150)
[2025-07-29 11:20] LABS: MALB Creatinine Ratio 12.5 mg/g (0-30)
--- OUTSIDE RECORDS SUMMARY | 2025-07-29 11:22 | XMS_ITS | Clinical Summary ---
Author Organization [facility] Address [address] [place] [id number] Care Team Providers Care Manager Maintenance Name Role Phone Unavailable Primary Care Provider Unavailabl e Social History Tobacco Use Types Packs/Day Years Used Date Smoking Tobacco: Never Assessed Comments Unknown Sex and Gender Information Value Date Recorded Sex Assigned at Not on file Legal Sex Female 5:21 PM CDT Gender Identity Not on file Sexual Orientation Not on file Plan of Treatment Health Maintenance Due Date Last Done Comments DTaP, Tdap and Td Vaccines ( 1 - Tdap) 1959 Pneumococcal Vaccine: 50+ Ye ars (1 of 1 - PCV) 1990 Zoster Vaccines (1 of 2) 1990 RSV Immunization or 60+ Years (1 - 1-dose 75+ series) 2015 COVID-19 Vaccine ( - 2023-2 5 season) 2025 Influenza Adult (#1) 2025 Hepatitis A Vaccines Aged Out No long er eligible based on patient's age to complete this topic Meningococcal B Vaccine Aged Out No l onger eligible based on patient's age to complete this topic Meningococcal Vaccine Aged Out No mamadou robert eligible based on patient's age to complete this topic RSV Immunizations Under 20 Months Aged Out No longer eligible based on patient's age to complete this topic
[2025-07-29 11:27] LABS: Free T4 Free Thyroxine 1.29 ng/dL (0.78-2.19)
[2025-07-29 11:46] LABS: Thyroid Stimulating Hormone 3.180 uIU/mL (0.465-4.680)
== END 2025-07-29 09:56 | disposition home or self-care (01) ==
PROVIDERS: PCP Family Medicine; Visit Provider Student in an Organized Health Care Education/Training Program
DX: E78.5 Hyperlipidemia, unspecified (principal); E11.9 Type 2 diabetes mellitus without complications; I10 Essential (primary) hypertension; R53.83 Other fatigue
CPT/HCPCS: 36415; 80053; 80061; 82043; 83036; 84439; 84443; 85025